=== PATIENT | female | born 1995 | race Caucasian/White ===

== ENCOUNTER 2019-05-13 13:29 | Inpatient (IN) | payer BC, MEDICAID ==
[~2019-05-13] VITALS: Ht 162.6 cm; Wt 88.9 kg
[2019-05-13] MEDS ORDERED: NALOXONE HCL 0.4 MG/ML 1ML VIAL IM PRN (15:30)
[2019-05-13] MEDS ORDERED: BUTORPHANOL TARTRATE 2 MG/ML VIAL IV PRN (15:30)
[2019-05-13] MEDS ORDERED: LIDOCAINE HCL 1% 20ML VIAL (Pyxis) INJ INFIL SCH (15:30)
[2019-05-13] MEDS ORDERED: CARBOPROST TROMETHAMINE 250 MCG/ML AMPUL IM PRN (15:30)
[2019-05-13] MEDS ORDERED: METHYLERGONOVINE MALEATE 0.2 MG/ML IM PRN (15:30)
[2019-05-13 16:38] LABS: BASOPHILS % 0.3 % (0.0-2.0); EOSINOPHILS % 0.6 % (0.0-5.0); HEMOGLOBIN. 11.9 g/dL (12.0-16.0); LYMPHOCYTES % 20.2 % (20.0-50.0); MEAN CORPUSCULAR HEMOGLOBIN 29.1 pg (28.0-32.0); MEAN CORPUSCULAR VOLUME 85.9 fL (81.0-99.0); MEAN PLATELET VOLUME 12.2 fl (7.4-10.4); NEUTROPHILS % 73.9 % (40.0-76.0); PLATELET 120 x1000/uL (130-400); RED BLOOD CELL COUNT 4.07 mill/uL (4.2-5.4)
[2019-05-13 16:39] LABS: PARTIAL THROMBOPLASTIN TIME 30.3 sec (23.4-31.0)
[2019-05-13 16:57] LABS: CLARITY URINE CLOUDY (CLEAR); COLOR URINE YELLOW (YELLOW); KETONES URINE NEGATIVE (NEGATIVE); LEUKOCYTE ESTERASE URINE TRACE (NEGATIVE); NITRITE URINE NEGATIVE (NEGATIVE); OCCULT BLOOD URINE NEGATIVE (NEGATIVE); PROTEIN URINE NEGATIVE (NEGATIVE); SPECIFIC GRAVITY URINE 1.021 (1.005-1.030)
[2019-05-13 17:00] LABS: HEPATITIS B SURFACE ANTIGEN NEGATIVE
[2019-05-13] MEDS ORDERED: PENICILLIN G POTASSIUM 5 MMU in DEXT 5% WATER 100 ML IV SCH (17:00)
[2019-05-13 17:07] LABS: *BENZODIAZEPINES SCREEN URINE NEGATIVE (NEGATIVE); *COCAINE SCREEN URINE NEGATIVE (NEGATIVE); METHADONE URINE SCREEN NEGATIVE (NEGATIVE); OPIATES URINE SCREEN NEGATIVE (NEGATIVE)
[2019-05-13 17:08] LABS: *AMPHETAMINES SCREEN URINE NEGATIVE (NEGATIVE); *BARBITURATES SCREEN URINE NEGATIVE (NEGATIVE); CANNABINOID URINE SCREEN NEGATIVE (NEGATIVE); PHENCYCLIDINE URINE SCREEN NEGATIVE (NEGATIVE)
[2019-05-13] MEDS: LACTATED RINGERS 1,000 ML IV SCH (18:32)
[2019-05-13] MEDS: PENICILLIN G POTASSIUM 2.5 MMU in DEXTROSE 5% WATER 50 ML IV SCH (20:48)
[2019-05-13] MEDS: DEXT 5%/LR + PITOCIN 20UNITS/L 1,000 ML IV SCH (20:51)
[2019-05-13] MEDS ORDERED: PENICILLIN G POTASSIUM 2.5 MMU in DEXTROSE 5% WATER 50 ML IV SCH (21:00)
[2019-05-14] MEDS: PENICILLIN G POTASSIUM 2.5 MMU in DEXTROSE 5% WATER 50 ML IV SCH ×6 (00:30→22:22)
[2019-05-14] MEDS: LACTATED RINGERS 1,000 ML IV SCH ×2 (02:00→10:16)
[2019-05-14] MEDS ORDERED: DIPHENHYDRAMINE 50MG/ML VIAL IV PRN (10:15)
[2019-05-14] MEDS ORDERED: ONDANSETRON HCL 4MG/2ML INJ IV PRN (10:15)
[2019-05-14] MEDS ORDERED: ROPIVACAINE HCL/PF EPIDURAL 200 ML EPI SCH (10:15)
[2019-05-14] MEDS: DEXT 5%/LR + PITOCIN 20UNITS/L 1,000 ML IV SCH (19:53)
[2019-05-14] MEDS ORDERED: LACTATED RINGERS 1,000 ML IV SCH (20:00)
[2019-05-14] MEDS ORDERED: EPHEDRINE SULFATE 50MG/ML VIAL ONE (23:29)
[2019-05-14] MEDS ORDERED: PHENYLEPHRINE HCL 10 MG/ML 1ML (IV VIAL) IV ONE (23:29)
[2019-05-14] MEDS ORDERED: MORPHINE SULFATE/PF 1MG/ML 10ML AMP ONE (23:29)
[2019-05-14] MEDS ORDERED: OXYTOCIN 10 UNITS/ML 1ML ONE (23:29)
[2019-05-14] MEDS ORDERED: FENTANYL CITRATE/PF 50MCG/ML 2ML VIAL ONE (23:29)
[2019-05-14] MEDS ORDERED: CEFAZOLIN SODIUM 1000MG/VIAL ONE ×2 (23:29→23:31)
[2019-05-14] MEDS ORDERED: CITRIC ACID/SODIUM CITRATE SOLN 30ML UDC PO NR (23:30)
[2019-05-15] VITALS (8 sets, daily range): BP systolic 98–124; BP diastolic 62–79
[2019-05-15] MEDS ORDERED: ONDANSETRON HCL 4MG/2ML INJ ONE (00:05)
[2019-05-15] MEDS ORDERED: DEXT 5%/LACTATED RINGERS 1,000 ML IV SCH (00:54)
[2019-05-15] MEDS ORDERED: DEXT 5%/LR + PITOCIN 20UNITS/L 1,000 ML IV SCH (00:54)
[2019-05-15] MEDS ORDERED: BISACODYL 10MG SUPP PR PRN (01:00)
[2019-05-15] MEDS ORDERED: HYDROCODONE/ACETAMINOPHEN 5/325MG TABLET PO PRN (01:00)
[2019-05-15] MEDS ORDERED: KETOROLAC 30MG/ML VIAL IV PRN (01:00)
[2019-05-15] MEDS ORDERED: HEMORRHOIDAL SUPP PR PRN (01:00)
[2019-05-15] MEDS ORDERED: ONDANSETRON HCL 4MG/2ML INJ IV PRN ×2 (01:00)
[2019-05-15] MEDS ORDERED: METOCLOPRAMIDE HCL 10MG/2ML VIAL IV PRN (01:00)
[2019-05-15] MEDS ORDERED: DIPHENHYDRAMINE 50MG/ML VIAL IV PRN (01:00)
[2019-05-15] MEDS ORDERED: MEPERIDINE HCL/PF 25MG/ML CPJ IV PRN (01:00)
[2019-05-15] MEDS: SIMETHICONE 80MG TABLET CHEW PO SCH ×3 (08:00→20:42)
[2019-05-15] MEDS: FERROUS SULFATE 325MG TABLET PO SCH (12:30)
[2019-05-15] MEDS: KETOROLAC 30MG/ML VIAL IV PRN ×2 (13:33→20:27)
[2019-05-16 00:01] VITALS: BP 112/64
[2019-05-16] MEDS: IBUPROFEN 400MG TABLET PO PRN ×3 (03:52→21:54)
[2019-05-16 03:57] VITALS: BP 101/57
[2019-05-16 08:14] LABS: BASOPHILS % 0.1 % (0.0-2.0); EOSINOPHILS % 0.2 % (0.0-5.0); HEMATOCRIT. 27.7 % (36.0-48.0); HEMOGLOBIN. 9.3 g/dL (12.0-16.0); LYMPHOCYTES % 9.9 % (20.0-50.0); MEAN CORPUSCULAR VOLUME 86.2 fL (81.0-99.0); MEAN PLATELET VOLUME 11.7 fl (7.4-10.4); MONOCYTES % 4.8 % (2.0-8.0); PLATELET 102 x1000/uL (130-400); RED BLOOD CELL COUNT 3.22 mill/uL (4.2-5.4); RED CELL DISTRIBUTION WIDTH 13.9 % (11.6-14.6)
[2019-05-16 09:00] VITALS: BP 110/66
[2019-05-16] MEDS: FERROUS SULFATE 325MG TABLET PO SCH ×3 (09:24→18:30)
[2019-05-16] MEDS: SIMETHICONE 80MG TABLET CHEW PO SCH ×3 (09:24→21:49)
[2019-05-16] MEDS: ACETAMINOPHEN WITH CODEINE 300/30MG TABLET PO PRN (13:16)
[2019-05-16 17:00] VITALS: BP 92/52
[2019-05-16 19:30] VITALS: BP 114/69
[2019-05-17 04:00] VITALS: BP 102/62
[2019-05-17 08:00] VITALS: BP 115/72
[2019-05-17] MEDS: FERROUS SULFATE 325MG TABLET PO SCH ×3 (08:09→17:48)
[2019-05-17] MEDS: SIMETHICONE 80MG TABLET CHEW PO SCH ×4 (08:09→21:36)
[2019-05-17] MEDS: ACETAMINOPHEN WITH CODEINE 300/30MG TABLET PO PRN ×2 (08:09→17:48)
[2019-05-17 12:00] VITALS: BP 109/70
[2019-05-17] MEDS: IBUPROFEN 400MG TABLET PO PRN (12:23)
[2019-05-17 16:00] VITALS: BP 108/69
[2019-05-17 19:30] VITALS: BP 116/67
[2019-05-18 04:00] VITALS: BP 119/84
[2019-05-18 07:15] VITALS: BP 120/85
[2019-05-18] MEDS ORDERED: FERR325T23 PO (07:31)
[2019-05-18] MEDS ORDERED: IBUP-2030 MT (07:31)
[2019-05-18] MEDS ORDERED: PREN1TAB22 MT (07:31)
[2019-05-18] MEDS: SIMETHICONE 80MG TABLET CHEW PO SCH (08:32)
[2019-05-18] MEDS: FERROUS SULFATE 325MG TABLET PO SCH (08:32)
[2019-05-18] MEDS: ACETAMINOPHEN WITH CODEINE 300/30MG TABLET PO PRN (08:33)
== END 2019-05-18 12:30 | disposition home or self-care (01) | DRG 787 ==
LOC: OBSVTOIN 13:29 → 8 EST LDRP 13:29 → 8EST 05-15 03:00
PROVIDERS: ADMIT Obstetrics & Gynecology; ATTEND Obstetrics & Gynecology
PROC: 10D00Z1 Extraction of Products of Conception, Low, Open Approach (ICD-10-PCS; principal; 2019-05-14)
DX: O36.63X0 Maternal care for excessive fetal growth, third trimester, not applicable or unspecified (principal); O99.13 Other diseases of the blood and blood-forming organs and certain disorders involving the immune mechanism complicating the puerperium; Z3A.41 41 weeks gestation of pregnancy; Z37.0 Single live birth; D69.6 Thrombocytopenia, unspecified; O61.9 Failed induction of labor, unspecified
CPT/HCPCS: 36415; 76805; 76818; 80305; 81003; 86592; 86703; 86762; 86850; 86900; 87340; 88307; 99281; J0690; J1885; J2274; J2370; J2405; J2540; J2590; J2795; J3010; J3490; J7060; J7120; J7121; A4315